=== PATIENT | female | born 1985 | race Caucasian/White ===

== ENCOUNTER → 2020-06-20 08:54 | Outpatient (CLI) | payer BC, SELFPAY ==
--- NOTE | ~2020-06-20 | US_ITS ---
EXAMINATION: US right upper quadrant DATE: 06/20/2020 09:20 INDICATION: Right upper quadrant pain TECHNIQUE: Multiple grayscale and Doppler ultrasound images of the abdomen were obtained. COMPARISON: None available FINDINGS: The head, body, and tail of the pancreas are normal. The liver is normal with normal echoge nicity and echotexture. No surface nodularity. Normal hepatopetal flow in the main portal vein. There are multiple stones in the nondistended gallbladder. There is no gallbladder wall thickening or brandon cholecystic fluid. The normal common bile duct measures 4 mm. There was no sonographic Live sign. IMPRESSION: 1. Cholelithiasis without findings of cholecystitis. Reviewed, dictated and finalized at location A.
== END ==
PROVIDERS: Visit Provider Chiropractor
DX: R10.9 Unspecified abdominal pain (principal); K80.20 Calculus of gallbladder without cholecystitis without obstruction
CPT/HCPCS: 76705

== ENCOUNTER 2023-06-29 20:40 | Emergency (ER) | payer SELFPAY ==
--- NOTE | ~2023-06-29 | CT_ITS ---
CT of the Abdomen and Pelvis: Indication: Abdominal pain Technique: 2.5 mm axial scans were obtained through the abdomen and pelvis following intravenous adm inistration of 100 cc of Omnipaque 350. Dose reduction technique was used on this scan by utilizing a utomated exposure control and iterative reconstruction technique. The dose-length product (DLP) was 9 25.93 mGy-cm. Findings: Scans through the lung bases are unremarkable. The liver, spleen, pancreas, left adrenal gland, and kidneys are within normal limits. Calcified gall stone present near the gallbladder neck. 1.3 cm right adrenal nodule present. No evidence of aortic a neurysm. No lymphadenopathy. No bowel obstruction or bowel wall thickening. There is no evidence to suggest acute appendicitis. Images through the pelvis were performed. Urinary bladder unremarkable. 2.5 cm left adnexal cyst pres ent. No ascites. Impression: Cholelithiasis. 1.3 cm right adrenal nodule, indeterminate, though statistically most likely adenoma. 2.5 cm left ovarian cyst. Reviewed, dictated and finalized at [facility]. Impression: Cholelithiasis. 1.3 cm right adrenal nodule, indeterminate, though statistically most likely ad enoma. 2.5 cm left ovarian cyst.
[2023-06-29 20:42] VITALS: BP 119/72; PULSE 76; RESP 16; TEMP 36.5; O2SAT 100
[2023-06-29 20:55] LABS: Basophils Percent Auto 0.5 % (0.2-1.2); Eosinophils Percent Auto 0.2 % (0-4.4); Hematocrit 43.1 % (37.0-47.0); Hemoglobin 14.6 g/dL (12.0-15.0); Immature Granulocyte Absolute 0.03 K/mm3 (0.00-0.031); Immature Granulocyte Percent A 0.5 % (0-0.5); Lymphocytes Absolute Auto 0.78 K/mm3 (0.9-3.2); Lymphocytes Percent Auto 11.8 % (18.3-44.2); Mean Corpuscular HGB Conc 33.9 g/dl (32-36); Mean Corpuscular Hemoglobin 33.2 pg (26-34); Mean Platelet Volume 9.4 fl (7.4-10.4); Monocytes Absolute Auto 0.8 K/mm3 (0.1-0.6); Monocytes Percent Auto 11.9 % (2.6-8.5); Neutrophils Percent Auto 75.1 % (45.5-73.1); Platelet Count Result 301 k/mm3 (150-375); Red Cell Distribution Width 12.4 % (11.5-14.5); White Blood Count 6.6 K/mm3 (4.5-10.0)
[2023-06-29 21:06] LABS: Alanine Aminotransferase 29 U/L (6-35); Alkaline Phosphatase 80 U/L (38-126); Anion Gap 9 mmol/L (8-16); Aspartate Amino Transferase 25 U/L (14-36); Bilirubin,Total 0.5 mg/dL (0.2-1.3); Blood Urea Nitrogen 9 mg/dL (7-17); Calcium 9.4 mg/dL (8.4-10.2); Carbon Dioxide 25 mmol/L (22-30); Chloride 104 mmol/L (98-107); Estimated CRCL calculation 97 ml/min; Estimated Glomerular Filt Rate > 60; Glucose 96 mg/dL (65-110); Lipase 46 U/L (23-300); Potassium 3.6 mmol/L (3.4-5.0); Sodium 138 mmol/L (137-145)
[2023-06-30 01:09] VITALS: BP 147/77; PULSE 69; RESP 16; TEMP 36.5; O2SAT 97
[2023-06-30 01:44] VITALS: BP 146/68; PULSE 78; RESP 17; O2SAT 100
[2023-06-30 02:16] LABS: Add Urine Microscopic? YES; Appearance Urine Cloudy (Clear); Bacteria Urine None Seen /hpf; Bilirubin Urine Negative (Negative); Blood Urine 2+ (Negative); Color Urine Yellow (Yellow); Glucose Urine UA Negative (Negative); Ketones Urine Trace mg/dL (Negative); Leukocyte Esterase Ur Trace LEU/UL (Negative); Mucus Urine Present /lpf; Nitrate Urine Negative (Negative); Non Pathogenic Casts 0-2; Protein Urine Trace mg/dL (Negative); RBC Urine 21-50 /hpf (0-2); Specific Grav Ur 1.014 (1.001-1.035); Squamous Epithelial Cell Urine Occasional /hpf (Few); Urobilinogen Urine 0.2 mg/dL (<2.0); WBC Urine 0-5 /hpf
[2023-06-30] MEDS: SODIUM CHLORIDE 0.9% IV 1,000 ML 999 ML IV CONT (03:49)
[2023-06-30] MEDS: ONDANSETRON INJ 4 MG/2 ML VIAL IV PUSH (03:49)
[2023-06-30 03:51] VITALS: BP 126/65; PULSE 65; RESP 15; O2SAT 96
--- NOTE | 2023-06-30 03:53 | PC.NURSE ---
Pt to CT scan via stretcher at this time.
[2023-06-30 05:37] VITALS: BP 128/86; PULSE 68; RESP 17; O2SAT 100
--- NOTE | 2023-06-30 06:28 | ED.GENADULT ---
HPI - General Adult General Chief complaint: Abdominal Pain Stated complaint: ab pain Time Seen by Provider: 06/30/23 03:33 History of Present Illness HPI narrative: Patient 38-year-old female who presents the emergency department with chief complaint of abdominal pain. Patient reports that she started having discomfort this evening reports that she had some nausea and vomiting. The patient reports that she is concerned she may have a UTI reports that she ate spaghetti yesterday. Related Data Allergies Allergy/AdvReac Type Severity Reaction Status Date / Time metoclopramide Allergy Mild SHAKY Verified 03/20/21 11:24 poison ok extract Allergy Mild RASH Verified 03/20/21 11:24 Review of Systems Review of Systems: A 10 system review of systems was completed on the patient and is negative except for what is stated in the HPI. Nursing and ancillary documentation was reviewed. Exam Narrative: GENERAL: Well-appearing, well-nourished, and in no acute distress. HEAD: Normocephalic, atraumatic. EYES: PERRLA and EOMI. ENT: Nares clear, no rhinorrhea or epistaxis. Mucous membranes moist. NECK: Supple. CHEST: Clear to auscultation. No respiratory distress. HEART: Regular rate and rhythm. No murmur heard. Normal peripheral pulses. ABDOMEN: Soft, diffusely tender to palpation, nondistended, normal active bowel sounds. EXTREMITIES: Normal range of motion. No edema. SKIN: Warm, dry, no rash. NEURO: No focal deficits. Alert and oriented x3. PSYCH: Normal mood and affect. Course Vital Signs Vital signs: Vital Signs Temperature 36.5 C 06/29/23 20:42 Pulse Rate 76 06/29/23 20:42 Respiratory Rate 16 06/29/23 20:42 Blood Pressure 119/72 06/29/23 20:42 Pulse Oximetry 100 06/29/23 20:42 Oxygen Delivery Room Air 06/29/23 20:42 Temperature 36.5 C 06/30/23 01:09 Pulse Rate 68 06/30/23 05:37 Respiratory Rate 17 06/30/23 05:37 Blood Pressure 128/86 06/30/23 05:37 Pulse Oximetry 100 06/30/23 05:37 Oxygen Delivery Room Air 06/29/23 20:42 Medical Decision Making MDM Narrative Medical decision making narrative: Differential diagnosis include cholelithiasis cholecystitis, pancreatitis, appendicitis, ovarian cyst. Laboratory studies were obtained which showed a white count of 6.6 electrolytes are within normal limits liver enzymes are within normal limits lipase was 46 urinalysis showed no evidence of UTI CT scan of the abdomen pelvis showed a gallstone in the neck of the gallbladder and a 2.5 cm left corpus luteal cyst. Patient received IV fluids and antiemetics pain was doing better already patient was informed that this is most likely secondary to biliary colic the patient was in instructed to a low-fat no fat diet and will be referred to surgery Vital Signs Vital Signs: Vital Signs Temperature 36.5 C 06/29/23 20:42 Pulse Rate 76 06/29/23 20:42 Respiratory Rate 16 06/29/23 20:42 Blood Pressure 119/72 06/29/23 20:42 Pulse Oximetry 100 06/29/23 20:42 Oxygen Delivery Room Air 06/29/23 20:42 Temperature 36.5 C 06/30/23 01:09 Pulse Rate 68 06/30/23 05:37 Respiratory Rate 17 06/30/23 05:37 Blood Pressure 128/86 06/30/23 05:37 Pulse Oximetry 100 06/30/23 05:37 Oxygen Delivery Room Air 06/29/23 20:42 Lab Data 06/29/23 20:50 06/29/23 20:50 Labs: Lab Results 06/29/23 06/30/23 Range/Units 20:50 01:53 WBC 6.6 (4.5-10.0) K/mm3 RBC 4.40 (4.2-5.4) M/mm3 Hgb 14.6 (12.0-15.0) g/dL Hct 43.1 (37.0-47.0) % MCV 98.0 (80-100) fl MCH 33.2 (26-34) pg MCHC 33.9 (32-36) g/dl RDW 12.4 (11.5-14.5) % Plt Count 301 (150-375) k/mm3 MPV 9.4 (7.4-10.4) fl Immature Gran % (Auto) 0.5 (0-0.5) % Neut % (Auto) 75.1 H (45.5-73.1) % Lymph % (Auto) 11.8 L (18.3-44.2) % [place] % (Auto) 11.9 H (2.6-8.5) % Eos % (Auto) 0.2 (0-4.4) % Baso % (Auto) 0.5 (0.2-1.2)
== END 2023-06-30 06:42 | disposition home or self-care (01) ==
PROVIDERS: Emergency Provider Emergency Medicine
DX: K80.50 Calculus of bile duct without cholangitis or cholecystitis without obstruction (principal); N83.202 Unspecified ovarian cyst, left side; E27.9 Disorder of adrenal gland, unspecified
CPT/HCPCS: 36415; 74177; 80053; 81001; 81025; 83690; 85025; 96361; 96374; 99284; J2405; J7030; Q9967

== ENCOUNTER 2025-02-15 10:05 | Emergency (ER) | payer OTHER, SELFPAY ==
[2025-02-15 10:14] VITALS: BP 123/70; PULSE 77; RESP 18; TEMP 36.7; O2SAT 99
--- NOTE | 2025-02-15 10:17 | ED_ITS ---
HPI - URI/Sore Throat General Chief Complaint: Upper Respiratory Infection Stated Complaint: URI Time Seen by Provider: 02/15/25 10:30 Source: patient and RN notes reviewed Mode of arrival: ambulatory Limitations: no limitations History of Present Illness HPI Narrative: 40-year-old female presents Express Care complaining of nausea vomiting diarrhea for 2 days. Patient states that she was diagnosed with otitis media 2 days ago and was prescribed Augmentin. She was initially having upper respiratory symptoms and she went to another urgent care 2 days ago. She said after her 2nd dose of Augmentin she developed nausea, vomiting, diarrhea. She reports that she has not been eating much food over the last 2 days. She reports some abdominal cramping when she vomits but denies any abdominal pain. She said her symptoms have not improved. She has not vomited since Wednesday. She says she has been able to drink plenty of fluids. She said the Augmentin did help with her ear infection. She denies any fevers, body aches, chills, rash, difficulty breathing, chest pain or any other concerns. Related Data Home Medications ?Medication ?Instructions ?Recorded ?Confirmed ?Last Taken ?Type amoxicillin 500 mg-potassium tablet 02/15/25 Unknown History clavulanate 125 mg tablet Allergies Allergy/AdvReac Type Severity Reaction Status Date / Time poison ok extract Allergy Mild RASH Verified 02/15/25 10:14 metoclopramide AdvReac Mild SHAKY Verified 02/15/25 10:14 Review of Systems Review of Systems: CONSTITUTIONAL: Denies fever, chills, or sweats. EYES: Denies visual changes, redness, or discharge. ENT: Denies rhinorrhea, congestion, sore throat, or otalgia. CARDIOVASCULAR: Denies chest pain, palpitations, or edema. RESPIRATORY: Denies cough or dyspnea. GASTROINTESTINAL: Denies abdominal pain. Positive for nausea, vomiting, abdominal cramping, or diarrhea. GENITOURINARY: Denies dysuria or hematuria. SKIN: Denies rash or itching. MUSCULOSKELETAL: Denies back pain, joint pain, or myalgia. NEUROLOGIC: Denies headache, numbness, or weakness. PSYCHIATRIC: Denies anxiety or depression. All other systems reviewed are negative, except as documented in HPI. PMFSH Comments At the time of my signature, I reviewed and agree with the nursing past medical, surgical, social, and family history. There is no relevant family history pertinent to the patient complaint. Exam Narrative: GENERAL: This is a well-nourished, well-developed adult, in no apparent distress. They are non ill-appearing, nontoxic appearing. HEAD: normocephalic, atraumatic. EYES: Sclera clear/white. Vision is grossly intact. EARS: External ears normal, auditory canals clear and without drainage, TMs with mild erythema, non bulging, without perforation. TMs Appears they are healing. Hearing grossly intact. NOSE: External nose normal with no obvious nasal discharge, nares without redness, no rhinorrhea. THROAT: Mucous membranes moist, posterior pharynx clear without swelling. Uvula midline NECK: Neck supple, non-tender without lymphadenopathy, masses or thyromegaly. CARDIOVASCULAR: Regular rate and rhythm without murmurs, gallops, or rubs. RESPIRATORY: Clear to auscultation. Breath sounds equal bilaterally. No wheezes, rales, or rhonchi. GASTROINTESTINAL: Abdomen soft, flat, non-tender, nondistended. Bowel sounds are active. No hepato-splenomegaly, or palpable masses. No guarding. No rebound tenderness. SKIN: warm, Dry, intact with no suspicious lesions or rash, good texture and turgor. NEURO: awake, alert, and oriented to person, place and time. There were no obvious focal neurologic abnormalities. EXTREMITIES: No joint tenderness, effusion, or edema noted. BACK: Nontender without deformity. No CVA tenderness. Course Course Emergency Course: Patient is aware of diagnosis, understands and agrees to treatment plan. Anticipatory guidance given. Patient agrees to follow-up as directed and is aware of reasons to seek care at the emergency department. Portions of this record may have been created with voice recognition software Level of Care: Express Care Visit Vital Signs Vital signs: Vital Signs Temperature 98.0 F 02/15/25 10:14 Pulse Rate 77 02/15/25 10:14 Respiratory Rate 18 02/15/25 10:14 Blood Pressure 123/70 02/15/25 10:14 Pulse Oximetry 99 02/15/25 10:14 Oxygen Delivery Room Air 02/15/25 10:14 Temperature 98.0 F 02/15/25 10:14 Pulse Rate 77 02/15/25 10:14 Respiratory Rate 18 02/15/25 10:14 Blood Pressure 123/70 02/15/25 10:14 Pulse Oximetry 99 02/15/25 10:14 Oxygen Delivery Room Air 02/15/25 10:14 Reviewed MDM - URI/Sore Throat MDM Narrative Medical decision making narrative: Patient's otitis media appears to be improving from the previous Augmentin doses. Patient may be suffering from an adverse reaction of Augmentin may not be able the tolerate it. Will switch her medication to cefdinir to finish a course of antibiotics for her otitis media. Will prescribe Zofran as needed for nausea and vomiting. No peritonitis or acute abdomen findings on exam. Patient is able to keep fluids down since yesterday. Discussed physical exam findings. Advised supportive measures and signs/symptoms to go to the ER. Pt is appropriate for outpt treatment and f/u. Differential Diagnosis Differential diagnosis: Likely other (Gastroenteritis, adverse reaction from medication, otitis media) Critical Care Time Critical Care Time Critical Care Time: No Discharge Plan Discharge Clinical Impression: Nausea vomiting and diarrhea Otitis media Qualifiers: Otitis media type: unspecified Chronicity: subacute Qualified Code(s): H66.90 - Otitis media, unspecified, unspecified ear Patient Disposition: Home Condition: Stable Instructions: Antibiotic Form, Acute Nausea and Vomiting (ED) Additional Instructions: Stop taking Augmentin. Take cefdinir as directed. Please take this with food. Please take the Zofran as directed for any nausea vomiting Recommend antihistamine such as Benadryl, Zyrtec or Mónica for sinus congestion Flonase nasal spray, 1 spray in each nostril once daily until symptoms improve Drink plenty of fluids including sports drinks that contain electrolytes. Eat food as tolerated. You may take Tylenol or ibuprofen as needed for pain or fevers. Please schedule a follow-up visit with your personal physician for further evaluation and treatment within 3-5days. If your symptoms persist, change or worsen significantly, go to the emergency department for further evaluation. Patient Language: New Zealander Prescriptions: New cefdinir 300 mg capsule 600 mg PO DAILY 5 Days Qty: 10 0RF ondansetron 4 mg tablet,disintegrating 4 mg PO Q8H PRN (Reason: nausea and vomiting) 3 Days Qty: 20 0RF No Action amoxicillin-pot clavulanate 500-125 mg tablet Follow-up/Referrals: UNKNOWN,DOCTOR [Primary Care Provider] - Stand Alone Forms: Work/School Release IP Time of Disposition: 10:42
--- OUTSIDE RECORDS SUMMARY | 2025-02-15 10:47 | XMS_ITS | Clinical Summary ---
Author Organization [facility] Address [facility] [place] [address] Care Team Providers Care Rigging Helper Name Role Phone Carly Marquez MD Primary Care Provider [phone] Medications amoxicillin-clav ulanate (AUGMENTIN) 500-125 MG tabletIndication s:Acute otitis media, unspecified otitis media type Take 1 tablet (500 mg of amoxicillin total) by mouth 3 (three) times daily for 10 days. 30 tablet 02/24/20 25 Active Encounters Date Type Department Care Team Description 02/13/2025 Orders Only [facility] - [address], [address] [place] [address] Edyta Reveles APRN from Last 3 Months Social History Tobacco Use Types Packs/Day Years Used Date Smoking Tobacco: Never Assessed Comments Unknown Sex and Gender Information Value Date Recorded Sex Assigned at Not on file Legal Sex Female 6:48 PM CDT Gender Identity Not on file Sexual Orientation Not on file Last Filed Vital Signs Vital Sign Reading Time Taken Comments Blood Pressure 112/78 11/11/2017 10:02 AM [facility] Pulse 98 11/11/2017 10:02 AM [facility] Temperature - - Respiratory Rate - - Oxygen Saturation - - Inhaled Oxygen Concentration - - Weight 80.4 kg (177 lb 4 oz) 11/11/2017 10:02 AM [facility] Height 162.6 cm (5' 4 ) 11/11/2017 10:02 AM [facility] Body Mass Index 30.42 11/11/2017 10:02 AM [facility] Plan of Treatment Health Maintenance Due Date Last Done Comments Cervical Cancer Screening Pa p Smear (Age 30 to 64) Every 3 Years 1984 Annual Physical 01/15/1987 Hepatitis C 01/15/2002 Hepatitis B Vaccines (1 of 3 - 19+ 3-dose series) 01/15/2003 Cervical Cancer Screening Pa p with HPV Testing (Age 30 to 64) Every 5 Years 01/15/2014 Cervical Cancer Screening with HPV 01/15/2014 Mammogram Screening 2024 COVID-19 Vaccine (1 - 2023-2 5 season) 2024 DTaP, Tdap and Td Vaccines ( 2 - Td or Tdap) 07/12/2024 07/12/2014 PHQ-2 (Physician [place]) 11/01/2024 HPV Vaccines Aged Out No longer eligi ble based on patient's age to complete this topic Meningococcal B Vaccine Aged Out No l onger eligible based on patient's age to complete this topic Meningococcal Vaccine Aged Out No ana paula siria eligible based on patient's age to complete this topic Pneumococcal Vaccine: Pediat rics (0 to 5 Years) and At-Risk Patients (6 to 49 Years) Aged Out No longer eligi ble based on patient's age to complete this topic RSV Immunizations Under 20 Months Aged Out No longer eligible based on patient's age to complete this topic Insurance Care Teams Rigging Helper Relationship Specialty Start Date End Date Carly Marquez MD [address] [place] [id number] [facility] - General 04/27/17
== END 2025-02-15 10:48 | disposition home or self-care (01) ==
DX: H66.90 Otitis media, unspecified, unspecified ear (principal); R11.2 Nausea with vomiting, unspecified; R19.7 Diarrhea, unspecified
CPT/HCPCS: 99213; G0463

== ENCOUNTER 2025-04-05 10:41 | Emergency (ER) | payer OTHER, SELFPAY ==
[2025-04-05 10:44] VITALS: BP 111/42; PULSE 74; RESP 16; TEMP 36.4; O2SAT 100
--- NOTE | 2025-04-05 10:47 | ED.SKABFB ---
HPI - Skin/Abscess/Foreign Bdy General Chief complaint: Skin/Abscess/Foreign Body Stated complaint: Rash On RT Arm Time Seen by Provider: 04/05/25 10:47 Source: patient Mode of arrival: ambulatory Limitations: no limitations History of Present Illness HPI narrative: Laura is a 40-year-old female patient presenting to the clinic today with complaints of a wound to the right proximal dorsal thumb. She reports 2-3 days ago the area started itching but does not recall being bit by any insects. Thought she may have contact dermatitis. Area became red and swollen and painful and there is red streaking going up into her antecubital. She is reporting some hot flashes. No known fever or body aches. 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 Patient reports she was started on Bactrim and metronidazole last week for BV/yeast infection. Related Data Home Medications ?Medication ?Instructions ?Recorded ?Confirmed ?Last Taken ?Type amoxicillin 500 mg-potassium tablet 02/15/25 Unknown History clavulanate 125 mg tablet Allergies Allergy/AdvReac Type Severity Reaction Status Date / Time poison ok extract Allergy Mild RASH Verified 02/15/25 10:14 metoclopramide AdvReac Mild SHAKY Verified 02/15/25 10:14 Review of Systems Review of Systems: Pertinent positives per HPI. Patient denies any fever, headache, visual changes, dizziness, cough, runny nose, sore throat, shortness of breath, chest pain, palpitations, nausea, vomiting, diarrhea, constipation, abdominal pain, or any urinary issues. PMFSH Comments At the time of my signature, I reviewed and agree with the nursing past medical, surgical, social, and family history. There is no relevant family history pertinent to the patient complaint. Exam Narrative: General: Well-developed, well nourished, in no apparent distress Head: Normocephalic, atraumatic. Cardio: Regular rate and rhythm, s1 and s2 normal, no murmur appreciated. Resp: Clear to auscultation bilaterally, no rhonchi, rales, wheezing or rubs. Integumentary: [place], warm, and dry, infected wound to the right dorsal proximal thumb with black tissue to the top of the wound, with localized cellulitis and lymphatic streaking up to the antecubital Course Course Emergency Course: Portions of this record may have been created with voice recognition software. Level of Care: Express Care Visit Vital Signs Vital signs: Vital Signs Temperature 36.4 C 04/05/25 10:44 Pulse Rate 74 04/05/25 10:44 Respiratory Rate 16 04/05/25 10:44 Blood Pressure 111/42 L 04/05/25 10:44 Pulse Oximetry 100 04/05/25 10:44 Oxygen Delivery Room Air 04/05/25 10:44 Temperature 36.4 C 04/05/25 10:44 Pulse Rate 74 04/05/25 10:44 Respiratory Rate 16 04/05/25 10:44 Blood Pressure 111/42 L 04/05/25 10:44 Pulse Oximetry 100 04/05/25 10:44 Oxygen Delivery Room Air 04/05/25 10:44 Vital signs reviewed Transfer Transfered to: [facility] Transportation: Other (private car) Transfer rationale: Right thumb wound with lymphatic streaking to the antecubital-history of MRSA. Accepting physician: Dr.Khishse Sarah Alston RN Transfer comments: private car MDM - Skin/Abscess/Foreign Bdy MDM Narrative Medical decision making narrative: At the time of visit patient is resting comfortably on the exam table. Patient appears to be nontoxic. Plan: Patient has history of MRSA skin infections. Recommend transfer to the ER as patient is already taking Bactrim and her symptoms are worsening. Patient agrees to transfer. Patient like to go to [facility] in [place], [place]. Report called to Alecia EDWARDS and Dr. Bryan accepts patient for transfer. Patient to be transferred via private car. Differential Diagnosis Differential diagnosis: Likely abscess of skin or subcutaneous tissue, viral exanthem, dermatophytosis, urticaria, herpes zoster, allergic reaction to drug, cellulitis, eczema, insect bites, impetigo and contact dermatitis Discharge Plan Discharge Clinical Impression: Infected wound, History of MRSA infection Patient Disposition: Acute Care Hospital Condition: Stable Patient Language: Lao Prescriptions: No Action amoxicillin-pot clavulanate 500-125 mg tablet cefdinir 300 mg capsule 600 mg PO DAILY 5 Days Qty: 10 0RF ondansetron 4 mg tablet,disintegrating 4 mg PO Q8H PRN (Reason: nausea and vomiting) 3 Days Qty: 20 0RF Follow-up/Referrals: PHYSICIAN,BUILDING SERVICE WORKER [Primary Care Provider] - [facility] of Dis[facility]: 10:41 [facility]SS nursing documentation: reviewed/agree
--- OUTSIDE RECORDS SUMMARY | 2025-04-05 11:41 | XMS_ITS | Data Portability ---
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 Plan of Treatment Reminders Order Date Submit Date Provider Last Modified By Organization Details Last Modified Time Details Appointments None recorded. Lab None recorded. Referral None recorded. Procedures None recorded. Surgeries None recorded. Imaging electrocar diogram 2018 019 nurbanski Not available 9 17:04:49 Medication Orders None recorded. Patient TargetsNo targets recorded. Patient Instructions Encounter Date Encounter Id Patient Instructions Last Modified By Organization Details Last Modified Time 08/28/2019 [id number] palpitations: care instructions [email or web address] Not available 08/28/2019 17:04:49 heart murmur: care instructions [email or web address] Not available 08/28/2019 17:04:49 10/02/2019 [id number] palpitations: care instructions [email or web address] Not available 10/02/2019 16:28:13 heart murmur: care instructions [email or web address] Not available 10/02/2019 16:28:13 Reason for Referral None Reported. Results Created Date Observation Date Name Description Value Unit Range Abnormal Flag Note LastModifiedBy Organization Detail LastModifiedTime 08/28/2008/28/2019 elect rocar diogr am Result EKG (08/28): NSR, WNL Not Available Jasson Rangel MD [address], [place], [address], 08/28/2019 16:15:50 08/14/20 19 07/19/2019 tari [email or web address] am No observ ation record ed. [email or web address] Not Available 2018 17:23:30 11/08/20 19 08/28/2019 elect dion hill am No observ ation record ed. [email or web address] Not Available 2018 11:09:41 09/25/20 19 09/21/2019 [place], echoc trent gram No observ ation record ed. [email or web address] Not Available 2018 14:37:31 09/25/20 19 09/21/2019 michael r monit or No observ ation record ed. [email or web address] Not Available 2018 14:38:15 Result Notes None recorded. Problems Name Problem SNOMED Code Status Onset Date Resolution Date Notes Provider Name and Address Organization Details Recorded Time History of back pain 209375358945 102 Active 2018 Miriam [place], [place] - [facility] 9 15:32:44 Muscle pain 43350556 Active 2018 Miriam [place], [place] - [facility] 9 15:33:50 Pain in thoracic spine 181592449 Active 2018 Miriam [place], [place] - [facility] 9 15:34:04 Migraine 33262016 Active 2018 Miriam [place], [place] - [facility] 9 15:34:16 Palpation Completed 201808/28/2019 Bruno [place], [place] - [facility] 9 17:03:06 Somatic dysfuncti on of thoracic region 090659447 Active 2018 Aftab pen[place], [place] - [facility] 9 08:40:58 Cervical segmental dysfuncti on 673598189 Active 2018 [employer] [place], [place] - [facility] 9 08:42:53 Myalgia/m yositis - multiple 936806520 Active 2018 [employer] [place], [place] - [facility] 9 08:43:18 Chronic back pain 183470102 Active 2018 Aftab pen[place], [place] - [facility] 9 08:45:00 Anxiety 28361187 Active 2018 Bruno pena, [place] - [facility] 9 16:55:19 Depressiv e disorder 10770504 Active 2018 [facility] 16:55:29 Osteoarth ritis 288606140 Active 2018 Bruno Torres [facility], [facility] 16:57:10 Palpitati ons 29796803 Active 2018 [facility] 17:03:00 Heart murmur 79780278 Active 2018 [facility] 17:03:31 Problem Notes None recorded. Medical Equipment None Reported. Allergies Allergen ID Allergen Name Allergen Category Reaction Reaction Severity Criticality Documentation Date Start Date Code Code System Note Provider Name and Address Organization Details Recorded Time 9112 Reglan medicatio n other severe Not available 08/28/2019 9230 RxNorm pt. steve Easley [facility] 16:27:19 Medications Name Sig Start Date Stop Date Status Note LastModified by Organization Details LastModified Time Flexeril 10 mg tablet Take 1 tablet 3 times a day by oral route. active Not Available Not Available No t Available Vitals Date Recorded Body height Body mass index (BMI) Body weight Heart rate Oxygen saturation Oxygen saturation in Arterial blood by Pulse oximetry Systolic blood pressure Diastolic blood pressure Provider Name and Address Organization Details Last Updated DateTime 9 162.56 cm 31.9 kg/m2 22235.1 8 g 77 /min 99 % 99 % 100 mm[Hg] 70 mm[Hg] Lisa Easley [facility] 9 16:26:27 Date Recorded Body height Body mass index (BMI) Body weight Heart rate Oxygen saturation Oxygen saturation in Arterial blood by Pulse oximetry Systolic blood pressure Diastolic blood pressure Provider Name and Address Organization Details Last Updated DateTime 9 162.56 cm 31.9 kg/m2 50142.1 8 g 67 /min 98 % 98 % 110 mm[Hg] 70 mm[Hg] Lisa Easley [facility] 9 11:48:31 Social History Question Answer Notes LastModified by Organ[employer]at [employer] Details LastModified Time Tobacco Smoking Status Former Smoker quit 2006 Not Available [employer] 09/03/2020 03:30:42 Do You Have An Advance Directive? No [id number] Information not available 09/03/2020 What Is Your Level Of Caffeine Consumption? Occasional [id number] Information not available 09/03/2020 What Type Of Diet Are You Following? REGULAR [id number] Information not available 09/03/2020 Which Illicit Or Recreational Drugs Have You Used? Marijuana [id number] Information not available 09/03/2020 Marital Status Informatio n not available 08/28/2019 How Many Children Do You Have? 1 [id number] Information not available 09/03/2020 How Much Tobacco Do You Smoke? No [id number] Information not available 09/03/2020 General Stress Level High Information not available 08/28/2019 How Many Years Have You Smoked Tobacco? 4 [id number] Information not available 09/03/2020 Sex: Unknown Functional Status Question Answer Note LastModified by Organizat ion Details LastModified Time What is your level of alcohol consumption? Occasional [id number] Information not available 09/03/2020 What is your exercise level? Moderate [id number] Information not available 09/03/2020 Mental Status None recorded. Family History Relationship Description Onset Age of this Age Resolved Age Notes LastModified by Organization Details LastModified Time Paternal Grandmother Heart disease fhearn Not available 2018 16:29:22 Mother Hypercholest erolemia fhearn Not available 2018 16:29:33 Mother Hypertensive disorder fhearn Not available 2018 16:29:51 Father Hypertensive disorder fhearn Not available 2018 16:29:51 Medical History Condition Response Depression Y Atrial Flutter Y Gynecological HistoryNo gynecological history recorded. Obstetrics History GPAL:G 0 P 0 0 0 0 Past Encounters Encounter ID Performer Location Encounter Start Date Encounter Closed Date Diagnosis/Indication Diagnosis SNOMED-CT Code Diagnosis ICD10 Code Diagnosis Note [id number] Bruno Torres MD [address] [place] [address] 08/28/2019 16:13:09 08/28/2019 17:05:46 Palpitations 51903726 R00.2 Holter, lillian=bs Heart murmur 61816612 R0 1.1 ECHO [id number] Bruno Torres MD [place] OFFICE [address] [place] [address] 10/02/2019 11:39:01 10/02/2019 16:28:58 Palpitations 27223236 R00.2 Holter unremarkab le Heart murmur 24443217 R0 1.1 ECHO showed normal fxn Health Concerns Section Related Observation LastModified by Organization Detai ls LastModified Time None Recorded Concern Status LastModified by Organization Details LastModified Time None Recorded Advance Directives Directive N: Payers Insurance Date Sequence Insurance Name Policy Number Policy Ramirez Covered Member ID Ramirez Member ID Guarantor Name 10/02/2019 1 [employer] [id number] Ian Aaron [id number] Asuncion Aaorn Notes Date Note Type Note Provider Name and Address Organization Details Recorded Time 08/28/2019 text/html 08/28/19 CC : Palpitation HPI: 34 years-old Female with h/o Back pain, anxiety, depression was referred for cardiac evaluation due to palpitation . No cardiac problems., no previous cardiac eval No known history of coronary artery disease. No history of previous myocardial infarction. No history of heart failure. No known valvular heart disease. No known arrhythmia. Patient reports feeling well overall. Patient is active, but is not exercising regularly. No chest pain. No arm pain. No neck pain. No nausea and vomiting. No diaphoresis. No shortness of breath at rest. No dyspnea on exertion. No fatigue.No orthopnea. No PND. No leg swelling. Palpitation reported. No dizziness. No syncope . No pre-syncope. No claudication. No major bleeding events. No side effects from medications. Complete ROS negative except as stated in the HPI and ROS. Results from this visit, or from the past: EKG (08/28/19): NSR, WNL MEHUL [facility] 08/28/2019 17:05:44 10/02/2019 text/html 10/02/19 CC: palpitations fuHPI: 34 years-old Female with h/o Back pain, anxiety, depression presents for scheduled fu. Pt underwent diagnostic tests and today presents for review of results. Had ECHO done in 09/21/19 showed EF 55-60% , mild aortic valve sclerosis without significant stenosis. The mitral valve leaflet is mildly thickened. There is mild calcification of the mitral valve leaflets. There is trace of mitral regurgitation. Had unremarkablle Holter done in 09/21/19 . No cardiac problems., no previous cardiac eval No known history of coronary artery disease. No history of previous myocardial infarction. No history of heart failure. No known valvular heart disease. No known arrhythmia. Patient reports feeling well overall. Patient is active, but is not exercising regularly. No chest pain. No arm pain. No neck pain. No nausea and vomiting. No diaphoresis. No shortness of breath at rest. No dyspnea on exertion. No fatigue.No orthopnea. No PND. No leg swelling. Palpitation reported. No dizziness. No syncope . No pre-syncope. No claudication. No major bleeding events. No side effects from medications. Complete ROS negative except as stated in the HPI and ROS. Results from this visit, or from the past: 09/21/19 Echo-Study quality: Technically difficult. LV chamber size is normal. The estimated left ventricle EF is 55-60% (normal). There is mild aortic valve sclerosis without significant stenosis. The mitral valve leaflet is mildly thickened. There is mild calcification of the mitral valve leaflets. There is trace of mitral regurgitation. EKG (08/28/19): NSR, WNL111/21/18 Holter- Unremarkable holter. No arrhythmia noted during palpitations. Bruno Torres [facility] [place] - [facility] 10/02/2019 16:28:56 OBGyn Episode No OBEpisode recorded.
--- OUTSIDE RECORDS SUMMARY | 2025-04-05 11:42 | XMS_ITS | Data Portability ---
Author Organization [place] - [facility] [place] Address [address] [place] [address] Assessment No assessment recorded. Plan of Treatment Reminders Order Date Submit Date Provider Last Modified By Organization Details Last Modified Time Details Appointments None recorded. Lab unlisted lab - [facility], JUWAN 2024 [facility] (Lab), [address] [place], [address], 15:25:59 Referral None recorded. Procedures None recorded. Surgeries None recorded. Imaging None recorded. Medication Orders imiquimod 5 % topical cream packet 2024 [facility] #[id number], [address] [facility], [place], [place], [id number], 12:54:15 Valtrex 1 gram tablet 2024 025 [facility], [address] [facility], [place], [place], [id number], 5 12:51:24 Bactrim DS 800 mg-160 mg tablet 2024 025 [facility], [address] [facility], [place], [place], [id number], 12:52:37 fluconazole 150 mg tablet 2024 025 [facility] #72526, [address], [place], [place], [id number], 12:52:12 metronidazo le 500 mg tablet 2024 025 [facility] #[id number], [address], [place], [place], [id number], 12:52:13 Patient TargetsNo targets recorded. Patient InstructionsNo instructions recorded. Reason for Referral None Reported. Results Created Date Observation Date Name Description Value Unit Range Abnormal Flag Note LastModifiedBy Organization Detail LastModifiedTime 03/30/2003/30/2025 [facility] SW[facility], JUWAN bacterial vaginosis (bv), tma Positi ve negati ve abnormal Not Available [facility] (Lab) [address] [facility], [place], [address], 03/31/2025 15:25:59 03/30/20 25 03/30/2025 [facility]OM[facility] 'S HEALT H SWAB PLUS, JUWAN pascale species, tma Positi ve negati ve abnormal Not Available [facility] (Lab) [address] [place], [address], 03/31/2025 15:25:59 03/30/20 25 03/30/2025 [facility] JUWAN pascale glabrata, tma Negati ve negati ve Not Available [facility] (Lab) [address] [place], [address], 03/31/2025 15:25:59 03/30/20 25 03/30/2025 [facility] JUWAN trichomonas vaginalis, tma Negati ve negati ve Not Available [facility] (Lab) [address] [place], [address], 03/31/2025 15:25:59 03/30/20 25 03/30/2025 [facility] JUWAN chlamydia trachomatis, PCR Negati ve negati ve Not Available [facility] (Lab) [address] [place], [address], 03/31/2025 15:25:59 03/30/20 25 03/30/2025 [facility]OM[facility] HEALT H SWAB PLUS, JUWAN neisseria gonorrhoeae, PCR Negati ve negati ve Bacte rial vagin osis detec ts the follo wing bacte hugo assoc iated with bacte rial vagin osis (BV): Lacto bacil luis (L. gasse ri, L. crisp atus and L. jense nabeel), Gardn erell a vagin smith, and Atopo bium vagin ae. A singl e quali tativ e resul t is repor kaveh base on instr ument softw are to deter mine BV posit mamaodu or negat mamadou statu s. The [facility] spec[facility] es group tests for C. albic ans, C. tropi calis , C. parap nacho is, C. dubli niens is. Testi ng is perfo rmed using the Trans cript ion Media kaveh Ampli ficat ion metho d. Tests for Anncy da glabr yesica, Trich omona s vagin smith, Chlam ydia trach omati s, and Neiss eria gonor rhoea e are also inclu ded in this panel . Not Available [facility] (Lab) [address], [place], [address], 03/31/2025 15:25:59 Result Notes None recorded. 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;Prac blank ID: 0001 Not Available [facility] 0 21:51:27 test negative 026576167 Active 2010 Negative Test;Pract ice ID: 0001 Not Available [facility] 0 21:51:27 Cervical intraepit helial neoplasia grade 2 157987838 Active 2010 NAZARIO 11 Moderate Dysplasia Of Cervix;Pra ctice ID: 0001 Not Available [facility] 0 21:51:27 Family history of breast cancer 785799055 Active 2017 Family history of malignant neoplasm of breast;Pra ctice ID: 0001 Not Available [facility] 0 21:51:27 Education Active 2017 Encounter for oth general cnsl and advice on contracept ion;Practi ce ID: 0001 Not Available [facility] 0 21:51:[address] Concept Active 2017 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) w/o abn findings;R ecorded Elsewhere: No Locatio n: [facility] rce: EHR Chroni c: N Practice ID: 0001 Billa ble Time: 01:30:00 PM Not Available [facility] 0 21:51:27 Increased frequency of urination 238694787 Active 2018 Frequency of micturitio n;Recorded Elsewhere: No Locatio n: [facility] rce: EHR Chroni c: N Practice ID: 0001 Billa ble Time: 11:00:00 AM Not Available [facility] 0 21:51:27 Evaluatio n finding Active 2018 Hematuria, unspecifie d;Recorded Elsewhere: No Locatio n: [facility] rce: EHR Chroni c: N Practice ID: 0001 Billa ble Time: 11:00:00 AM Not Available [facility] 0 21:51:27 Contracep tion care managemen t Active 2017 Encounter for contracept mamadou management , unspecifie d;Recorded Elsewhere: No Locatio n: [facility] rce: EHR Chroni c: N Practice ID: 0001 Billa ble Time: 01:30:00 PM Not Available [facility] 0 21:51:27 Problem Notes None recorded. Procedures Surgical History Date Name Laterality Status Provider Name and Address Organization Details Recorded Time 4 procedure on nose completed Nerissa Carr [facility] 03/30/2025 12:31:10 Imaging Results None recorded. Procedure Notes None recorded. Medical Equipment None Reported. Allergies Allergen ID Allergen Name Allergen Category Reaction Reaction Severity Criticality Documentation Date Start Date Code Code System Note Provider Name and Address Organization Details Recorded Time 44374 Reglan medicatio n Not available Not available Not available 03/30/2025 9230 RxNorm Nerissa pena [place] - [facility] 12:26:14 Medications Name Sig Start Date Stop Date Status Note LastModified by Organization Details LastModified Time cyclobenz aprine 10 mg tablet take 1 tablet by oral route 3 times every day 03/30 completed Prescrib ed Elsewher e: Yes Loca tion: [facility] odify By: corey Payne ter DateTime : 07/19/20 18 01:30:00 PM Not Available Not Available Not Available fluconazo le 150 mg tablet take 1 tablet by mouth now, repeat in 7 days 2024 active Not Available Not Available Not Avai lable metronida zole 500 mg tablet Take 1 tablet twice a day by oral route for 7 days. 2024 active Not Available Not Available Not Avai lable imiquimod 5 % topical cream packet APPLY TO THE AFFECTED AREA(S) BY TOPICAL ROUTE 3 times per week at bedtime for up to 16 weeks, leave on for 6-10 hours then wash off. 2024 active Not Available Not Available Not Avai lable Valtrex 1 gram tablet Take 1 tablet every day by oral route for 5 days. 2024 active Not Available Not Available Not Avai lable ondansetr on 4 mg disintegr ating tablet DISSOLVE 1 TABLET ON THE TONGUE EVERY 8 HOURS FOR 3 DAYS NEEDED FOR NAUSEA OR VOMITING 03/30 completed Not Available Not Available Not Available cefdinir 300 mg capsule TAKE 2 CAPSULES BY MOUTH DAILY FOR 5 DAYS 03/30 completed Not Available Not Available Not Available Ortho Tri-Cycle n (28) 0.18 mg(7)/0.2 15mg(7)/0 .25 mg(7)-0.0 35 mg tablet take 1 tablet by oral route every day 07/19 completed Prescrib ed Elsewher e: No Locat ion: [facility] odify By: corey Payne ter DateTime : 09/28/20 04:17:50 PM Not Available Not Available Not Available amoxicill in 500 mg-potass ium clavulana te 125 mg tablet TAKE 1 TABLET BY MOUTH THREE TIMES DAILY FOR 10 DAYS 03/30 completed Not Available Not Available Not Available Bactrim DS 800 mg-160 mg tablet Take 1 tablet twice a day by oral route for 7 days. 2024 active Not Available Not Available Not Avai lable Solosec [address] granules in packet take 1 packet by oral route and sprinkle contents onto applesau ce, yogurt or pudding and take within 30 minutes once 03/30 completed Prescrib ed Talha e: No Locat ion: [facility] odify By: [email or web address] ndt Savo raghu DateTime : 01/26/20 11:00:00 AM Not Available Not Available Not Available Vitals Date Recorded Body height Body mass index (BMI) Body weight Systolic blood pressure Diastolic blood pressure Provider Name and Address Organization Details Last Updated DateTime 03/30/2025 162.56 cm 36.2 kg/m2 38588.99 g 122 mm[Hg] 74 mm[Hg] Nerissa Olsonney [facility] 12:25:52 Social History Question Answer Notes LastModified by Organizat ion Details LastModified Time Tobacco Smoking Status Never Smoker Nerissa Olsonney [facility] 03/30/2025 12:29:55 Do You Have An Advance Directive? No [email or web address] Information n ot available 03/30/2025 How Many Years Have You Consumed Alcohol? 21 [email or web address] Information not available 03/30/2025 Are You Blind Or Do You Have Difficulty Seeing? No [email or web address] Information n ot available 03/30/2025 What Is Your Level Of Caffeine Consumption? Moderate [email or web address] Information not available 03/30/2025 How Much Tobacco Do You Chew? None [email or web address] Information not available 03/30/2025 In The 14 Days Before Symptom Onset, Have You Had Close Contact With A Laboratory-confirm ed COVID-19 While That Case Was Ill? No [email or web address] Information n ot available 03/30/2025 In The 14 Days Before Symptom Onset, Have You Had Close Contact With A Person Who Is Under Investigation For COVID-19 While That Person Was Ill? No Information not available 03/30/2025 Have You Been To An Area Known To Be High Risk For COVID-19? No [email or web address] Information not available 03/30/2025 Are You Deaf Or Do You Have Serious Difficulty Hearing? No [email or web address] Information not available 03/30/2025 What Type Of Diet Are You Following? REGULAR [email or web address] Information n ot available 03/30/2025 What Is The Highest Grade Or Level Of School You Have Completed Or The Highest Degree You Have Received? AV78203-8 [email or web address] Information not available 03/30/2025 Are There Any Guns Present In Your Home? No [email or web address] Information not available 03/30/2025 Do You Use Protection During Sex? Always [email or web address] Information not available 03/30/2025 Do You Use Your Seat Belt Or Car Seat Routinely? Yes [email or web address] Information not available 03/30/2025 Do You Have Smoke And Carbon Monoxide Detectors In Your Home? Yes [email or web address] Information not available 03/30/2025 How Much Tobacco Do You Smoke? No [email or web address] Information not available 03/30/2025 Do You Use Sunscreen Routinely? Yes Information not available 03/30/2025 Have You Used IV Drugs? No [email or web address] Information not available 03/30/2025 Sex: Unknown Functional Status Question Answer Note LastModified by Organizat ion Details LastModified Time Do you use any illicit or recreational drugs? No [email or web address] Information not available 03/30/2025 What is your level of alcohol consumption? Moderate [email or web address] Information not available 03/30/2025 Are you able to walk? 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 Occasional [email or web address] Information not available 03/30/2025 Mental Status Question Answer Note LastModified by Organization D etails LastModified Time Do you feel stressed (tense, restless, nervous, or anxious, or unable to sleep at night)? [id number] [email or web address] Information not available 03/30/2025 Family History Relationship Description Onset Age of this Age Resolved Age Notes LastModified by Organization Details LastModified Time Sister Malignant tumor of breast [email or web address] Not available 2024 12:26:15 Sister Paget's disease of nipple [email or web address] Not available 2024 12:30:10 Notes:Father: Hypertension M aternal grandmother: Cancer, lung Mother: Hypertension Paternal grandfather: Hypertension Paternal grandmother: Diabetes mellitus, Heart disease Paternal uncle: Diabetes mellitus Sister: Cancer, breast Medical History Condition Response Allergies (Food, seasonal, environmental ) N Other N Breast Cancer N Drug/Latex Allergies/Reactions N Blood Transfusion N Dermatologic Disorders N Lung Disease N Defects or Inherited Disease N Breast Problem N Gestational Diabetes N Hematologic disorders N Anesthesia Complications N History of STI N Deep Vein Thrombosis N Polycystic ovary syndrome N Anxiety Disorder N Autoimmune disease N Arthritis N Infertility N Polyps N Acid Reflux (GERD) N History of abnormal pap N Cancer N Stroke N Varicosities N Neurologic/Epilepsy N Endometriosis N High Cholesterol N Headaches N Fibromyalgia N Kidney Disease N Heart Problems N Kidney or Bladder Problems N Thyroid Problems N GI Problems N Eating Disorder N Anemia N Art (IVF or FET) N Psychiatric Illness N Ovarian Cancer N Diabetes N Pulmonary (TB, Asthma) N Hepatitis/Liver Disease N No Past Medical History N Eczema N Urinary Tract Infection N Abuse/Domestic Violence N Asthma N Trauma/Violence N Depression/ depression N Heart Disease N Pre-Eclampsia N Hypertension N Osteoporosis N Thrombophilias N Gynecological History Statement/Question Response Abnormal Pap Y Flow Moderate Date of Last Mammogram Date of LMP 03/04/2025 Was last menstrual period normal Y STIs/STDs Y HPV Vaccine N Duration of Flow (days) 3 Current Control Method None Are cycles usually normal Y Date of Last Colonoscopy Frequency of Cycle (Q days) 28 Sexually Active? N Menses Monthly Y Date of DEXA bone scan Date of Last Pap Smear Sexual Problems? N LMP Approximate Obstetrics History GPAL:G 2 P 1 0 1 1 Type Value Full Term 1 Spontaneous 1 Living 1 Total 2 Past Encounters Encounter ID Performer Location Encounter Start Date Encounter Closed Date Diagnosis/Indication Diagnosis SNOMED-CT Code Diagnosis ICD10 Code Diagnosis Note [id number] KITTY Gordon [place] [address] [address] 03/30/2025 12:08:15 04/02/2025 09:34:46 Lesion of skin and/or skin-associated mucous membrane 159735208 A63.0 Reviewed management options for condylomar x imiquimod cream, r/b/a reviewed Acute vaginitis 67343735 N76.0 suspect BV/yeast on examvagini tis/STI panel sentvulvar care guidelines discussedR x sent, r/b/a reviewied Discussed the various types of STIs, related symptoms and the potential consequenc es (including effects on fertility) of STI infections . Reviewed ways to limit exposure and prevention techniques . Genital he rpes simplex 40428284 A60.00 Rx valtrex for suspected HSV lesion Lesion of vulva 30462424 6 N90.89 rx bactrim, warm compress, RTC if symptoms do not resolve and/or worsen for I&D Patient is to contact office or go to nearest ED/Urgent care if fever >/= 100.1, pain, excessive bleeding, unusual drainage or swelling in area of concern; or experienci ng worsening sx's or new onset of concerning sx's. Understand ing verbalized . All questions answered to patient satisfacti on. RTC for WWE Time spent in visit is a total of 50 mins with at least 50% of visit consisting of counseling and review of plan of care. Venereal d isease screening 881522870 Z11.3 Health Concerns Section Related Observation LastModified by Organization Detai ls LastModified Time None Recorded Concern Status LastModified by Organization Details LastModified Time None Recorded Advance Directives Directive N: Payers Encounter Date Sequence Insurance Name Policy Number Policy Ramirez Covered Member ID Ramirez Member ID Guarantor Name 03/30/2025 1 [facility] [id number] Asuncion Aaron [id number] Asuncion Aaron Notes Date Note Type Note Provider Name and Address Organization Details Recorded Time 03/30/2025 text/html [email or web address] today t o discuss ongoing vulvar/vaginal symptomsVaginal d/c, odor, itching x 2-3 monthslesions/bumps on a few areas of the vulva, noticed about 6 months ago h/o HSV, outbreaks a few times per yr Neg pelvic painneg n/v/fneg flu-like symptoms unsure of when last pap smear was KITTY Gordon [address], [place], [address], [facility] 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 Status 03/30/20 25 1 CLOSED Fetus Data First Name Last Name Admitted to NICU Weight (g) Sex Living Outcome Pediatric Complications Fetus ID Race Codes Race Delivery Type F Full Term [id number] Vaginal Delivery Philip Calculation Initial Philip Date Initial Exam Date Initial Exam Provider Initial Ultrasound Date Last Menstrual Period Date Ultra Sound Weeks Gestation 0 Eighteen To Twenty Week Philip Update Ultra Sound Date Fundal Height At Umbil Quickening Date Ultra Sound Latest Weeks Gestation Final Philip Confirmed By Final Philip Confirmed Date Final Philip Date Ultra Sound Latest Days Gestation 0 0 Menstrual History Last Menstrual Date Menses Monthly On Bcp Conception Prior Menses Frequency Hcg Plus Date Menarche Onset Age Delivery Information Delivery Date Delivery Type Labor Anesthesia Weeks Gestation Incision Type Labor Labor Length Hrs Delivered By Post Complications Tubal Sterilization Discharge Date Comments 1 Discharge Information Feeding Method Contraceptive Method Maternal HG B and HCT Levels Ob Episode Information Episode Created Date Number of Fetuses Patient Bloodtype Patient rh Status Prepregnancy Weight lbs Domestic Partner Domestic Partner Phone Father Name 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 Status 03/30/20 25 1 CLOSED Fetus Data First Name Last Name Admitted to NICU Weight (g) Sex Living Outcome Pediatric Complications Fetus ID Race Codes Race Delivery Type [id number] Philip Calculation Initial Philip Date Initial Exam Date Initial Exam Provider Initial Ultrasound Date Last Menstrual Period Date Ultra Sound Weeks Gestation 0 Eighteen To Twenty Week Philip Update Ultra Sound Date Fundal Height At Umbil Quickening Date Ultra Sound Latest Weeks Gestation Final Philip Confirmed By Final Philip Confirmed Date Final Philip Date Ultra Sound Latest Days Gestation 0 0 Menstrual History Last Menstrual Date Menses Monthly On Bcp Conception Prior Menses Frequency Hcg Plus Date Menarche Onset Age Delivery Information Delivery Date Delivery Type Labor Anesthesia Weeks Gestation Incision Type Labor Labor Length Hrs Delivered By Post Complications Tubal Sterilization Discharge Date Comments 9 Discharge Information Feeding Method Contraceptive Method Maternal HG B and HCT Levels
== END 2025-04-05 11:12 | disposition short-term general hospital (02) ==
LOC: EXPTROY 10:43
PROVIDERS: Emergency Provider Nurse Practitioner Family
DX: S61.001A Unspecified open wound of right thumb without damage to nail, initial encounter (principal); L08.9 Local infection of the skin and subcutaneous tissue, unspecified; X58.XXXA Exposure to other specified factors, initial encounter; Z86.14 Personal history of Methicillin resistant Staphylococcus aureus infection
CPT/HCPCS: 99212; G0463